=== PATIENT | male | born 1975 | race Caucasian/White ===

== ENCOUNTER 2024-05-23 05:29 | Emergency (ER) | payer BC ==
[2024-05-23] MEDS ORDERED: Sodium Chloride 0.9% 10 ML Syringe FLUSH PRN (05:38)
[2024-05-23 05:46] LABS: BASOPHILS ABSOLUTE AUTO 0.02 K/uL (0.00-0.20); BASOPHILS PERCENT AUTO 0.2 % (0.0-2.0); EOSINOPHILS ABSOLUTE AUTO 0.05 K/uL (0.00-0.50); EOSINOPHILS PERCENT AUTO 0.6 % (0.0-5.0); HEMATOCRIT 40.4 % (39.0-49.0); HEMOGLOBIN 13.4 g/dL (13.1-16.8); LYMPHOCYTES ABSOLUTE AUTO 0.91 K/uL (0.50-3.50); LYMPHOCYTES PERCENT AUTO 10.5 % (10.0-50.0); MEAN CORPUSCULAR HEMOGLOBIN 27.6 pg (28.2-33.3); MEAN CORPUSCULAR HGB CONC 33.2 g/dL (31.7-36.0); MEAN CORPUSCULAR VOLUME 83.1 fL (84.0-98.0); MONOCYTES ABSOLUTE AUTO 0.84 K/uL (0.00-1.00); MONOCYTES PERCENT AUTO 9.7 % (2.0-14.0); NEUTROPHILS ABSOLUTE AUTO 6.87 K/uL (1.40-7.00); RED BLOOD CELL COUNT 4.86 M/uL (4.33-5.41); RED CELL DISTRIBUTION WIDTH 14.8 % (11.2-14.1); WHITE BLOOD CELL COUNT,WBC 8.7 K/uL (4.0-10.2)
[2024-05-23 05:57] LABS: PLATELET COUNT,PLT 7 K/uL (150-350)
[2024-05-23 06:03] LABS: ALANINE AMINOTRANSFERASE,ALT 35 U/L (12-78); ALBUMIN 3.9 g/dL (3.4-5.0); ALKALINE PHOSPHATASE 87 IU/L (46-116); ANION GAP 10.8 meq/L (7-15); ASPARTATE AMNIOTRANSFERASE,AST 19 U/L (15-37); BILIRUBIN TOTAL 0.5 mg/dL (0.2-1.0); BLOOD UREA NITROGEN,BUN 17 mg/dL (7-18); CALCIUM 8.6 mg/dL (8.5-10.1); CARBON DIOXIDE,CO2 27.2 mmol/L (21.0-32.0); CHLORIDE,CL 107 mmol/L (98-107); CREATININE 1.18 mg/dL (0.51-1.17); GLUCOSE RANDOM 114 mg/dL (70-99); MAGNESIUM 1.9 mg/dL (1.8-2.4); PROTEIN TOTAL,TP 7.4 g/dL (6.4-8.2); SODIUM,NA 145 mmol/L (136-145)
[2024-05-23 06:04] LABS: ESTIMATED GFR 76 mL/min (>=60)
[2024-05-23 06:12] LABS: INR 1.1 (0.9-1.1); PROTHROMBIN TIME 10.5 SEC (9.0-11.1)
== END 2024-05-23 06:40 | disposition home or self-care (01) ==
LOC: LL.ED 05:29
DX: R42 Dizziness and giddiness (principal); Z88.2 Allergy status to sulfonamides
CPT/HCPCS: 36415; 80053; 83735; 84484; 85025; 85610; 93005; 99284